=== PATIENT | male | born 1940 | race Caucasian/White ===

== ENCOUNTER → 2019-12-23 | Outpatient (REF) | payer MEDICARE ==
[~2019-12-23] MED LIST: ACET65TA OR; COUM1TAB18 OR; HYDR25TA6 OR; HYDROCHLORIZIDE PO; LOVAZA; OCUVITE PO; PAXIL PO; PRILOSEC PO; TRAM50TA2 OR; VITAMIN C AND D PO; ZOCOR PO
[2019-12-23 15:31] LABS: CRYSTALS, BODY FLUID NONE SEEN (NONE SEEN); SOURCE, BODY FLUID RT KNEE; SOURCE, BODY FLUID CRYSTALS RT KNEE; SYNOVIAL FLUID COLOR YELLOW (YELLOW)
[2019-12-23 15:46] LABS: SOURCE, BODY FLUID GLUCOSE RT KNEE; SOURCE, BODY FLUID URIC ACID RT KNEE; URIC ACID, BODY FLUID 8.6 MG/DL (NOT ESTABLISHED)
[2019-12-24 12:47] LABS: BODY FLUID RHEUMATOID SCREEN NEGATIVE (NEGATIVE)
[2019-12-24 12:49] LABS: MUCIN CLOT TEST 4+ (4+)
== END ==
LOC: M LAB REF 15:15
PROVIDERS: ATTEND Orthopaedic Surgery
DX: M17.11 Unilateral primary osteoarthritis, right knee (principal)